=== PATIENT | male | born 1985 | race Caucasian/White ===

== ENCOUNTER 2020-06-08 16:24 | Emergency (ER) | payer SELFPAY ==
--- NOTE | 2020-06-08 16:29 | DI.RAD.S_ITS ---
PROCEDURE: XR FINGER RT MIN 2V INDICATIONS: 3rd digit pain/swelling r/t hyperextension TECHNIQUE: AP hand, 2 views of the 3rd finger(s) acquired. COMPARISON: [facility], CR, XR HAND 3+ VIEWS RIGHT, 08/31/2019, 12:57. [facility], CR, XR HAND 3+ VIEWS RIGHT, 07/27/2019, 11:35. FINDINGS: Bones: No acute fractures or dislocations. There is a healed distal 5th metacarpal fracture seen. No suspicious bony lesions. Soft tissues: No suspicious soft tissue calcifications. IMPRESSION: No displaced fractures are seen. Healed distal 5th metacarpal fracture. Dictated by: Tim Hernandez M.D. on 06/08/2020 at 15:37 Approved by: Tim Hernandez M.D. on 06/08/2020 at 15:38
[2020-06-08 16:30] VITALS: BP 146/85; PULSE 70; RESP 16; TEMP 36.4; O2SAT 98
--- NOTE | 2020-06-08 16:45 | PC.NURSE ---
pt states his finger was crushed between the washer and the wall. it is swollen at middle metacarpel.
--- NOTE | 2020-06-08 17:25 | ED_ITS ---
HPI - Extremity Injury (Upper) <BIRGIT Guardado - Last Filed: 06/08/20 17:35> General Chief Complaint: Extremity Injury, Upper Stated Complaint: thinks broke middle finger right hand Time Seen by Provider: 06/08/20 16:32 Source: patient Mode of arrival: Ambulatory Limitations: no limitations History of Present Illness HPI narrative: The patient is a 35-year-old male current smoker with history of neck surgery presents with a chief complaint of pain to his right middle finger. He states that yesterday he was moving a washing machine, and thinks he might have hyperextended it when his hand got caught between a washing machine and a wall. He states that his finger bent back any felt a pop. He has not taken anything for pain other than his oxycodone which he takes for his neck. He states his finger pain is not that bad, but he is concerned about decreased range of motion and swelling. He denies any previous injuries to his hand, is left-hand dominant. Related Data Allergies Allergy/AdvReac Type Severity Reaction Status Date / Time No Known Drug Allergies Allergy Verified 06/08/20 16:31 Review of Systems <BIRGIT Guardado - Last Filed: 06/08/20 17:35> Review of Systems Narrative: GENERAL: Denies chills, fatigue, malaise, fever, sweats. HEENT: Denies sinus pain, ear pain, sore throat, difficulty swallowing, dizziness. RESPIRATORY: Denies dyspnea, cough, wheezing, hemoptysis, sputum. CARDIOVASCULAR: Denies chest pain, palpitations, orthopnea, edema, GASTROINTESTINAL: Denies nausea, vomiting, abdominal pain, diarrhea, constipation, melena. : Denies dysuria, frequency, incontinence, hematuria, urinary retention. MUSCULOSKELETAL: See HPI SKIN: Denies rash, skin lesions, or other NEUROLOGIC: Denies weakness, headache, numbness, change in speech, confusion, seizures, incoordination. PSYCHIATRIC: No concerning psychosocial issues. 12 point review of systems is negative except for those stated above Patient History <BIRGIT Guardado - Last Filed: 06/08/20 17:35> Social History Smoking Status: Current every day smoker Smoking Status: Current every day smoker Exam <BIRGIT Guardado - Last Filed: 06/08/20 17:35> Narrative Exam Narrative: GENERAL: This is a well-nourished, well-developed patient, in no acute distress HEAD: Atraumatic. Normocephalic. No temporal or scalp tenderness. EYES: Pupils equal round and reactive. Extraocular motions intact. No scleral icterus. No injection or drainage. ENT: Nose without bleeding, purulent drainage or septal hematoma. Wearing a mass. Airway patent. CARDIOVASCULAR: Regular rate and rhythm RESPIRATORY: No cough. No increased respiratory effort. No accessory muscle use. EXTREMITIES: Slight swelling noted right middle finger. Capillary refill less than 2 seconds right middle finger, able to flex and extend, the reduced range of motion. Positive right radial pulse. BACK: Nontender without deformity or crepitance. No flank tenderness. NEURO: AOx3. SKIN: No rash or erythema on visible skin. No laceration or abrasion noted right middle finger, no ecchymosis noted Initial Vital Signs Initial Vital Signs: Vital Signs Temperature 97.5 F L 06/08/20 16:30 Pulse Rate 70 06/08/20 16:30 Respiratory Rate 16 06/08/20 16:30 Blood Pressure 146/85 H 06/08/20 16:30 Pulse Oximetry 98 06/08/20 16:30 <Oziel Urbano DO - Last Filed: 06/08/20 18:04> Initial Vital Signs Initial Vital Signs: Vital Signs Temperature 97.5 F L 06/08/20 16:30 Pulse Rate 70 06/08/20 16:30 Respiratory Rate 16 06/08/20 16:30 Blood Pressure 146/85 H 06/08/20 16:30 Pulse Oximetry 98 06/08/20 16:30 Course <BIRGIT Guardado - Last Filed: 06/08/20 17:35> Orders Ordered: ED Orders 06/08/20 16:29 XR finger RT min 2V Stat Vital Signs Vital signs: Vital Signs - 8 hr 06/08/20 16:30 Temperature 97.5 F L Pulse Rate 70 Respiratory Rate 16 Blood Pressure 146/85 H Pulse Oximetry 98 <Oziel Urbano DO - Last Filed: 06/08/20 18:04> Orders Ordered: ED Orders 06/08/20 16:29 XR finger RT min 2V Stat Vital Signs Vital signs: Vital Signs - 8 hr 06/08/20 16:30 Temperature 97.5 F L Pulse Rate 70 Respiratory Rate 16 Blood Pressure 146/85 H Pulse Oximetry 98 MDM - Extremity Injury (Upper) <STEPHEN Guardado-BC - Last Filed: 06/08/20 17:35> Imaging Data Extremity x-ray #1: Radiologist's Impression: [address] [place] [id number] XRay Report Signed Patient: Rui Torres [facility]#: [id number] : 1985Acct:[id number] Age/Sex: 35 / MDate of Service: 06/08/20 Loc: ED Accession Number: [id number] Procedure: XR finger RT min 2V Ordering Provider: Oziel Urbano D.O. PROCEDURE: XR FINGER RT MIN 2V INDICATIONS: 3rd digit pain/swelling r/t hyperextension TECHNIQUE: AP hand, 2 views of the 3rd finger(s) acquired. COMPARISON: [facility], CR, XR HAND 3+ VIEWS RIGHT, 08/31/2019, 12:57. [facility], CR, XR HAND 3+ VIEWS RIGHT, 07/27/2019, 11:35. FINDINGS: Bones: No acute fractures or dislocations. There is a healed distal 5th metacarpal fracture seen. No suspicious bony lesions. Soft tissues: No suspicious soft tissue calcifications. IMPRESSION: No displaced fractures are seen. Healed distal 5th metacarpal fracture. Dictated by: Tim Hernandez M.D. on 06/08/2020 at 15:37 Approved by: Tim Hernandez M.D. on 06/08/2020 at 15:38 [facility] Narrative Medical decision making narrative: Patient presents with a chief complaint of concern of right middle finger injury. Patient is neurovascular intact, x-rays negative. Discussed the possibility of soft tissue injury, though the patient's range of motion is reassuring. Encouraged rest ice compression elevation as well as [id number] pain medications as needed and able as well as primary care follow-up in the next few days. Patient has no questions or concerns upon discharge and states understanding return precautions as well as follow-up care. Discharge Plan Departure Patient Disposition: Home Clinical Impression: Finger sprain Qualifiers: Encounter type: initial encounter Finger: middle finger Sprain of finger site: unspecified site Laterality: right Qualified Code(s): S63.612A - Unspecified sprain of right middle finger, initial encounter Discharge Date/Time: 06/08/20 17:30 Instructions: DI for Finger Sprain, How To Perform RICE (Rest, Ice, Compress, Elevate) Activity Restrictions/Additional Instructions: Thank you for trusting us with your care today. As I discussed, your x-ray shows no acute fracture. This does not rule out a soft tissue injury such as a ligament or tendon injury. It is important that you follow up with primary care provider, especially if worsening or no improvement. There can be fractures that did not show up on initial x-ray. Please use rest ice compression elevation as well as [id number] pain medications as needed and able. Please come back to the emergency department for any acute concerns. Please follow-up with primary care provider in the next few days. <Oziel Urbano DO - Last Filed: 06/08/20 18:04> Cosign ED Attending [place] Attestation: I was immediately available in the department for consultation. This documentation has been reviewed and I agree with assessment and plan. Supervised by Oziel Urbano DO
== END 2020-06-08 17:30 | disposition home or self-care (01) ==
PROVIDERS: Emergency Provider Nurse Practitioner Family
DX: S63.612A Unspecified sprain of right middle finger, initial encounter (principal)
CPT/HCPCS: 73140; 99281; 99283